=== PATIENT | female | born 1985 | race Caucasian/White ===

== ENCOUNTER 2016-07-30 14:26 | Emergency (ER) | payer OTHER ==
--- NOTE | ~2016-07-30 | CT71 ---
[facility] A Service [facility] RADIOLOGY TEXT RESULTS PATIENT: TENZIN SCHREIBER LOCATION: [facility] : 89 UNIT #: [id number] AGE: [address]: Linda Carbajal MD SEX: F ORDER DR: [id number] [facility]. [place], [place] [address] [id number] E MR#: [id number] Acc #: [id number] NAME: TENZIN SCHREIBER : 1985 SEX: F STUDY DATE/TIME: 07/30/2016 15:17 UNIT: [facility] ROOM: STUDY DESCRIPTION: CT Head Wo Contrast Attending Physician: Linda Carbajal M.D. Ordering Physician: Linda Carbajal M.D. Primary Care Physician: Tamara Davidson M.D. MEDICAL IMAGING REPORT This report is preliminary unless electronic signature is present EXAM CT head. HISTORY Migraine headaches for [address] of the head without contrast. This CT exam was performed with one or more of the following radiation dose reduction techniques: automatic exposure control, adjustment of mA and/or kV according to patient size, and iterative reconstruction. COMPARISON CT head, dated 08/17/2009. FINDINGS Ventricular size and configuration are normal. There is no evidence of acute infarct or hemorrhage. There are no extra-axial fluid collections. No mass lesion or mass effect is seen. There are no skull fractures. IMPRESSION Normal noncontrast head CT. Dictated by... Servando Cee M.D. THIS IS AN ELECTRONICALLY VERIFIED REPORT Servando Cee M.D. at 07/30/2016 7:47 PM CRISTINA/jennifer TD: 07/30/2016 16:56 [facility] A Service [facility] RADIOLOGY TEXT RESULTS PATIENT: TENZIN SCHREIBER LOCATION: [facility] : 89 UNIT #: [id number] AGE: [address]: Linda Carbajal MD SEX: F ORDER DR: SAKSHI #: [id number] MEDICAL IMAGING REPORT Page 1 of 1 COPY
[~2016-07-30 14:26] MED LIST: ACETAMINOPHEN PO; ALPRAZOLAM0.5 MG PO; ANUSOL SUPP1 SUPP PR; ATARAX PO; BACTRIM 400-801 TA1 PO; BENTYL20 M1 PO; CELEXA20 M1 PO; CETIRIZINE HCL10 MG PO; CIPRO PO; FLAGYL PO; FLUTICASONE PRO16 GM; KLONOPIN0.5 MG PO; LORTAB 10-5001 EACH PO; LORTAB 5-325 M1 EACH PO; MEDROL4 MG/DOSE- PO; MOTRIN600 MG PO; PERCOCET 51 UDTAB 5/ PO; PHENERGAN25 M1 PO; PROAIR HFA8.5 GM INH; PROTONIX; PROTONIX PO; REGLAN10 MG PO; TROKENDI XR25 MG PO; ZITHROMAX PO; ZOLOFT PO
[2016-07-30 14:48] LABS: URINE SOURCE CLEAN CATCH
[2016-07-30 14:53] LABS: URINE APPEARANCE CLEAR; URINE BILIRUBIN NEG (NEG); URINE BLOOD NEG (NEG); URINE COLOR YELLOW; URINE GLUCOSE NEG (NEG); URINE KETONE NEG (NEG); URINE LEUKOCYTE ESTERASE TRACE (NEG); URINE NITRATE NEG (NEG); URINE PH 7.5 (5-8); URINE PROTEIN NEG (NEG); URINE SPECIFIC GRAVITY 1.007 (1.003-1.035); URINE UROBILINOGEN 0.2 MG/DL (NEG)
[2016-07-30 14:54] LABS: BASOPHIL# 0.1 X10e3 (0-0.3); BASOPHIL% 1.1 % (0-2.5); EOSINOPHIL# 0.1 X10e3 (0-0.7); EOSINOPHIL% 1.7 % (0.0-7.0); HEMATOCRIT 40.2 % (35.0-45.0); HEMOGLOBIN 13.9 gm/dL (12.0-16.0); LYMPHOCYTE# 1.7 X10e3 (1.0-3.5); LYMPHOCYTE% 32.3 % (17.0-45.0); MEAN CELL VOLUME 91.2 FL (83-96); MEAN CORPUSCULAR HEMOGLOBIN 31.5 PG (28-34); MEAN CORPUSCULAR HGB CONC 34.5 g/dL (30-36); MEAN PLATELET VOLUME 9.7 FL (6.5-11.5); MONOCYTE# 0.3 X10e3 (0-1.0); MONOCYTE% 6.5 % (3.0-12.0); NEUTROPHIL% 58.4 % (40-75); PLATELET COUNT 167 X10e3 (140-420); RED BLOOD COUNT 4.41 X10e (3.90-5.30); RED CELL DISTRIBUTION WIDTH 12.6 % (11.0-15.5); WHITE BLOOD COUNT 5.2 X10e3 (4.0-10.5)
[2016-07-30 14:56] LABS: CULTURE INDICATED? YES; URBCS1 AUWI 0-2 /[HPF] (0-2); URINE BACTERIA AUWI 1+ (NEGATIVE); URINE SQUAMOUS EPITHELIAL CELL MOD /[HPF]
[2016-07-30 15:00] LABS: DIFF IND NO
[2016-07-30 15:55] LABS: BUN/CREATININE RATIO 11.42; CALCIUM SERUM 8.8 mg/dL (8.4-10.2); CREATININE SERUM 0.7 mg/dL (0.6-1.4); GLOM FILT RATE Estimated 117.9 mL/min (>60); POTASSIUM 3.3 mmol/L (3.5-5.1)
== END 2016-07-30 17:45 | disposition home or self-care (01) ==
LOC: CED 14:26
PROVIDERS: Emergency Medicine
DX: G43.909 Migraine, unspecified, not intractable, without status migrainosus (principal); Z91.041 Radiographic dye allergy status
CPT/HCPCS: 36415; 70450; 80048; 81003; 84703; 85025; 87086; 96361; 96374; 96375; 99284; J1200; J1885; J2405; J2930

== ENCOUNTER 2016-08-30 13:47 | Emergency (ER) | payer OTHER ==
[2016-08-30 14:17] LABS: URINE SOURCE CLEAN CATCH
[2016-08-30 14:26] LABS: URINE APPEARANCE CLEAR; URINE BILIRUBIN NEG (NEG); URINE BLOOD NEG (NEG); URINE COLOR YELLOW; URINE GLUCOSE NEG (NEG); URINE KETONE NEG (NEG); URINE LEUKOCYTE ESTERASE TRACE (NEG); URINE NITRATE NEG (NEG); URINE PROTEIN NEG (NEG); URINE SPECIFIC GRAVITY 1.007 (1.003-1.035); URINE UROBILINOGEN 0.2 MG/DL (NEG)
[2016-08-30 14:28] LABS: CULTURE INDICATED? YES; U HYALINE CASTS AUWI 0-2 /[LPF]; URBCS1 AUWI 0-2 /[HPF] (0-2); URINE BACTERIA AUWI 1+ (NEGATIVE); URINE SQUAMOUS EPITHELIAL CELL FEW /[HPF]
[2016-08-30 14:38] LABS: AMPHETAMINE NEG (NEG); BARBITURATES NEG (NEG); BENZODIAZEPINES NEG (NEG); COCAINE NEG (NEG); MARIJUANA NEG (NEG); OPIATES NEG (NEG); TRICYCLIC ANTIDEPRESSANTS NEG (NEG); U METHADONE NEG (NEG)
== END 2016-08-30 15:10 | disposition home or self-care (01) ==
LOC: CED 13:47
PROVIDERS: Student in an Organized Health Care Education/Training Program
DX: G43.909 Migraine, unspecified, not intractable, without status migrainosus (principal); Z91.041 Radiographic dye allergy status
CPT/HCPCS: 36415; 80307; 81003; 87086; 96361; 96374; 96375; 99284; J1200; J1885; J2405

== ENCOUNTER 2016-10-25 08:15 | Emergency (ER) | payer OTHER ==
--- NOTE | ~2016-10-25 | CR2 ---
[facility] A Service of [facility] RADIOLOGY TEXT RESULTS PATIENT: TENZIN SCHREIBER LOCATION: [facility] : 89 UNIT #: [id number] AGE: [address]: Heron Ahn MD SEX: F ORDER DR: [id number] [facility] [address] [place], [place] [address] [id number] E MR#: [id number] Acc #: [id number] NAME: TENZIN SCHREIBER. : 1985 SEX: F STUDY DATE/TIME: 10/25/2016 10:33 UNIT: [facility] ROOM: STUDY DESCRIPTION: CR Abdomen Acute Series Attending Physician: Heron Ahn M.D. Ordering Physician: Heron Ahn M.D. Primary Care Physician: Tamara Davidson M.D. MEDICAL IMAGING REPORT This report is preliminary unless electronic signature is present EXAM Acute abdomen series, 3 views, 10/25/2016. HISTORY Abdomen pain, vomiting and diarrhea for 1 day with nausea. FINDINGS Single frontal view of the chest taken at the time of the abdominal examination is within normal limits. AP, supine, and upright examination of the abdomen shows a normal gas and fecal pattern distribution throughout large and small bowel without distended loops in either area. There is no indication of extraluminal air, unusual visceromegaly, or soft tissue density mass. The renal definitions are fairly well demarcated and normal in shape and size. No abnormal intra-abdominal calcifications are present. IMPRESSION Normal acute abdomen series. Dictated by... Gary Mckenna M.D. THIS IS AN ELECTRONICALLY VERIFIED REPORT Gary Mckenna M.D. at 10/26/2016 2:15 PM KRT/yemi TD: 10/25/2016 18:04 JOB #: [id number] [facility] A Service of [facility] RADIOLOGY TEXT RESULTS PATIENT: TENZIN SCHREIBER LOCATION: [facility] : 89 UNIT #: [id number] AGE: [address]: Heron Ahn MD SEX: F ORDER DR: MEDICAL IMAGING REPORT Page 1 of 1 COPY
[2016-10-25 10:17] LABS: BASOPHIL% 1.1 % (0-2.5); EOSINOPHIL% 1.1 % (0.0-7.0); HEMATOCRIT 41.5 % (35.0-45.0); LYMPHOCYTE% 24.7 % (17.0-45.0); MEAN CELL VOLUME 93.4 FL (83-96); MEAN CORPUSCULAR HEMOGLOBIN 31.4 PG (28-34); MEAN CORPUSCULAR HGB CONC 33.7 g/dL (30-36); MEAN PLATELET VOLUME 10.5 FL (6.5-11.5); MONOCYTE# 0.3 X10e3 (0-1.0); MONOCYTE% 7.7 % (3.0-12.0); NEUTROPHIL# 2.7 X10e3 (1.5-7.1); NEUTROPHIL% 65.4 % (40-75); PLATELET COUNT 173 X10e3 (140-420); RED BLOOD COUNT 4.44 X10e (3.90-5.30); RED CELL DISTRIBUTION WIDTH 12.7 % (11.0-15.5); WHITE BLOOD COUNT 4.2 X10e3 (4.0-10.5)
[2016-10-25 10:20] LABS: DIFF IND NO
[2016-10-25 10:40] LABS: URINE SOURCE CLEAN CATCH
[2016-10-25 10:43] LABS: ALBUMIN SERUM 4.7 g/dL (3.5-5.0); BILIRUBIN, DIRECT 0.1 mg/dL (0.0-0.2); BILIRUBIN,INDIRECT 0.8 mg/dL (0.0-0.9); BILIRUBIN,TOTAL 0.9 mg/dL (0.2-2.0); BUN/CREATININE RATIO 13.33; CALCIUM SERUM 9.1 mg/dL (8.4-10.2); CREATININE SERUM 0.6 mg/dL (0.6-1.4); POTASSIUM 3.8 mmol/L (3.5-5.1); PROTEIN TOTAL SERUM 7.3 g/dL (6.0-8.3)
[2016-10-25 10:44] LABS: URINE APPEARANCE CLOUDY; URINE BILIRUBIN NEG (NEG); URINE BLOOD NEG (NEG); URINE COLOR YELLOW; URINE GLUCOSE NEG (NEG); URINE KETONE NEG (NEG); URINE LEUKOCYTE ESTERASE TRACE (NEG); URINE NITRATE NEG (NEG); URINE PROTEIN NEG (NEG); URINE SPECIFIC GRAVITY 1.019 (1.003-1.035)
[2016-10-25 10:47] LABS: CULTURE INDICATED? YES; URINE BACTERIA AUWI 2+ (NEGATIVE); URINE SQUAMOUS EPITHELIAL CELL MOD /[HPF]
== END 2016-10-25 13:02 | disposition home or self-care (01) ==
LOC: CED 08:15
PROVIDERS: Emergency Medicine
DX: R11.2 Nausea with vomiting, unspecified (principal); R19.7 Diarrhea, unspecified; Z91.041 Radiographic dye allergy status
CPT/HCPCS: 36415; 74022; 80048; 80076; 81003; 83690; 84703; 85025; 87086; 96361; 96374; 99284; J2405

== ENCOUNTER 2016-11-21 11:30 | Emergency (ER) | payer OTHER ==
--- NOTE | ~2016-11-21 | EKG ---
PATIENT: TENZIN SCHREIBER UNIT #: [id number] Ventricular Rate: 63 BPM Atrial Rate: 63 BPM P-R Interval: 138 ms QRS Duration: 94 ms Q-T Interval: 426 ms QTC Calculation(Bezet): 435 ms P [place]: 65 degrees Calculated R [place]: 67 degrees Calculated T [place]: 64 degrees Diagnosis Line: Normal sinus rhythm Diagnosis Line: Normal ECG Diagnosis Line: When compared with ECG of 12-JUN-2015 16:24, Diagnosis Line: T wave inversion no longer evident in Inferior Diagnosis Line: leads Diagnosis Line: Nonspecific T wave abnormality no longer evident Diagnosis Line: in Anterolateral leads Diagnosis Line: Confirmed by ANSON JAVIER MD ([id number]) on Diagnosis Line: 11/21/2016 3:57:51 PM INTERPRETING MD: LUIS ALBERTO
[2016-11-21 12:25] LABS: URINE SOURCE CLEAN CATCH
[2016-11-21 12:32] LABS: BASOPHIL% 0.8 % (0-2.5); EOSINOPHIL# 0.1 X10e3 (0-0.7); EOSINOPHIL% 2.8 % (0.0-7.0); HEMATOCRIT 41.7 % (35.0-45.0); HEMOGLOBIN 14.6 gm/dL (12.0-16.0); LYMPHOCYTE# 1.5 X10e3 (1.0-3.5); LYMPHOCYTE% 29.7 % (17.0-45.0); MEAN CELL VOLUME 93.6 FL (83-96); MEAN CORPUSCULAR HEMOGLOBIN 32.8 PG (28-34); MEAN PLATELET VOLUME 9.8 FL (6.5-11.5); MONOCYTE# 0.4 X10e3 (0-1.0); MONOCYTE% 8.6 % (3.0-12.0); NEUTROPHIL% 58.1 % (40-75); PLATELET COUNT 165 X10e3 (140-420); RED BLOOD COUNT 4.45 X10e (3.90-5.30); RED CELL DISTRIBUTION WIDTH 12.8 % (11.0-15.5); WHITE BLOOD COUNT 5.2 X10e3 (4.0-10.5)
[2016-11-21 12:35] LABS: DIFF IND NO
[2016-11-21 12:38] LABS: URINE APPEARANCE CLEAR; URINE BILIRUBIN NEG (NEG); URINE BLOOD NEG (NEG); URINE COLOR YELLOW; URINE GLUCOSE NEG (NEG); URINE KETONE NEG (NEG); URINE LEUKOCYTE ESTERASE TRACE (NEG); URINE NITRATE NEG (NEG); URINE PROTEIN NEG (NEG); URINE SPECIFIC GRAVITY 1.008 (1.003-1.035); URINE UROBILINOGEN 0.2 MG/DL (NEG)
[2016-11-21 12:41] LABS: CULTURE INDICATED? YES; URBCS1 AUWI 0-2 /[HPF] (0-2); URINE BACTERIA AUWI 1+ (NEGATIVE); URINE SQUAMOUS EPITHELIAL CELL MOD /[HPF]
[2016-11-21 13:04] LABS: BUN/CREATININE RATIO 14.28; CALCIUM SERUM 9.1 mg/dL (8.4-10.2); CREATININE SERUM 0.7 mg/dL (0.6-1.4); GLOM FILT RATE Estimated 117.1 mL/min (>60); POTASSIUM 3.5 mmol/L (3.5-5.1)
== END 2016-11-21 13:45 | disposition home or self-care (01) ==
LOC: CED 11:30
PROVIDERS: Emergency Medicine
DX: R42 Dizziness and giddiness (principal); R51 Headache; F41.9 Anxiety disorder, unspecified; F32.9 Major depressive disorder, single episode, unspecified; K58.9 Irritable bowel syndrome, unspecified; Z98.890 Other specified postprocedural states; Z91.041 Radiographic dye allergy status
CPT/HCPCS: 36415; 80048; 81003; 84703; 85025; 87086; 93005; 99284

== ENCOUNTER 2017-01-08 11:19 | Emergency (ER) | payer OTHER ==
[~2017-01-08] VITALS: Ht 165.1 cm; Wt 65.8 kg
--- NOTE | ~2017-01-08 | EKG ---
PATIENT: TENZIN SCHREIBER UNIT #: [id number] Ventricular Rate: 69 BPM Atrial Rate: 69 BPM P-R Interval: 144 ms QRS Duration: 86 ms Q-T Interval: 394 ms QTC Calculation(Bezet): 422 ms P [place]: 38 degrees Calculated R [place]: 20 degrees Calculated T [place]: 17 degrees Diagnosis Line: Normal sinus rhythm Diagnosis Line: Normal ECG Diagnosis Line: When compared with ECG of 21-NOV-2016 12:05, Diagnosis Line: No significant change was found Diagnosis Line: Confirmed by FRANCISCA HUNTLEY MD ([id number]) on Diagnosis Line: 01/10/2017 11:31:12 AM INTERPRETING MD: YUKO PARKER
--- NOTE | ~2017-01-08 | CR72 ---
[facility] A Service [facility] RADIOLOGY TEXT RESULTS PATIENT: TENZIN SCHREIBER LOCATION: [facility] : 89 UNIT #: [id number] AGE: [address]: Bryan Wild MD SEX: F ORDER DR: [id number] [id number] [facility]. [place], [place] [address] [id number] E MR#: [id number] Acc #: [id number] NAME: TENZIN SCHREIBER : 1985 SEX: F STUDY DATE/TIME: 01/08/2017 12:19 UNIT: [facility] ROOM: STUDY DESCRIPTION: CR Chest Single View Portable Attending Physician: Bryan Wild M.D. Ordering Physician: Bryan Wild M.D. Primary Care Physician: Tamara Davidson M.D. MEDICAL IMAGING REPORT This report is preliminary unless electronic signature is present EXAM Portable chest x-ray 01/08/2017 HISTORY Syncope. Hands cold. Symptoms 1 week. TECHNIQUE AP radiograph of the chest is presented. COMPARISON STUDIES 10/25/2016. FINDINGS The bony structures show evidence of levoscoliosis lumbar spine, similar appearance on prior study. Heart and mediastinum normal in size and contour. The lungs are hyperinflated, as on the prior study. Correlate with any known underlying chronic airway disease. There is no pleural effusion or pneumothorax. No suspicious nodule. No evidence of acute infectious or inflammatory disease. Dictated by... Con Gonzalez M.D. THIS IS AN ELECTRONICALLY VERIFIED REPORT Con Gonzalez M.D. at 01/10/2017 2:31 PM MYRANDA/sen TD: 01/08/2017 19:38 JOB #: [id number] [facility] A Service of [facility] RADIOLOGY TEXT RESULTS PATIENT: TENZIN SCHREIBER LOCATION: [facility] : 89 UNIT #: [id number] AGE: [address]: Bryan Wild MD SEX: F ORDER DR: MEDICAL IMAGING REPORT Page 1 of 1 COPY
--- NOTE | ~2017-01-08 | CT71 ---
[facility] A Service of [facility] RADIOLOGY TEXT RESULTS PATIENT: TENZIN SCHREIBER LOCATION: [facility] : 89 UNIT #: [id number] AGE: [address]: Bryan Wild MD SEX: F ORDER DR: [id number] [facility] [address] [place], [place] [address] [id number] E MR#: [id number] Acc #: [id number] NAME: TENZIN SCHREIBER : 1985 SEX: F STUDY DATE/TIME: 01/08/2017 12:34 UNIT: [facility] ROOM: STUDY DESCRIPTION: CT Head Wo Contrast Attending Physician: Bryan Wild M.D. Ordering Physician: [id number] Kofi Wild Primary Care Physician: Tamara Davidson M.D. MEDICAL IMAGING REPORT This report is preliminary unless electronic signature is present EXAM CT head without contrast INDICATIONS Syncope in the shower this morning. Patient hit her head. she reports headache and dizziness and nausea. TECHNIQUE Axial noncontrast images were obtained from the skull base to the vertex. This CT exam was performed with one or more of the following radiation dose reduction techniques: automatic exposure control, adjustment of mA and/or kV according to patient size, and iterative reconstruction. FINDINGS Ventricular size and configuration are normal. There is no evidence of acute infarct or hemorrhage. There are no extraaxial fluid collections. No mass lesion or mass effect is seen. There are no skull fractures. IMPRESSION Negative. Normal noncontrast head CT. Dictated by... Arianna Mcdonald M.D. THIS IS AN ELECTRONICALLY VERIFIED REPORT Arianna Mcdonald M.D. at 01/09/2017 5:41 PM AFF/to TD: 01/08/2017 20:57 JOB #: [id number] MEDICAL IMAGING REPORT Page 1 of 1 COPY
[2017-01-08 12:22] LABS: BASOPHIL# 0.1 X10e3 (0-0.3); BASOPHIL% 1.2 % (0-2.5); EOSINOPHIL# 0.1 X10e3 (0-0.7); EOSINOPHIL% 2.4 % (0.0-7.0); HEMATOCRIT 42.5 % (35.0-45.0); HEMOGLOBIN 14.5 gm/dL (12.0-16.0); LYMPHOCYTE# 1.5 X10e3 (1.0-3.5); LYMPHOCYTE% 28.7 % (17.0-45.0); MEAN CELL VOLUME 92.8 FL (83-96); MEAN CORPUSCULAR HEMOGLOBIN 31.7 PG (28-34); MEAN CORPUSCULAR HGB CONC 34.1 g/dL (30-36); MEAN PLATELET VOLUME 9.7 FL (6.5-11.5); MONOCYTE# 0.4 X10e3 (0-1.0); MONOCYTE% 7.7 % (3.0-12.0); NEUTROPHIL# 3.1 X10e3 (1.5-7.1); PLATELET COUNT 205 X10e3 (140-420); RED BLOOD COUNT 4.58 X10e (3.90-5.30); RED CELL DISTRIBUTION WIDTH 12.8 % (11.0-15.5); WHITE BLOOD COUNT 5.2 X10e3 (4.0-10.5)
[2017-01-08 12:23] LABS: DIFF IND NO
[2017-01-08 12:33] LABS: PROTHROMBIN TIME (PATIENT) 10.4 SECONDS (10.0-11.7)
[2017-01-08 12:34] LABS: INFLUENZA A NEG (NEG)
[2017-01-08 12:35] LABS: INFLUENZA B NEG (NEG)
[2017-01-08 13:12] LABS: ALBUMIN SERUM 4.7 g/dL (3.5-5.0); ALKALINE PHOSPHATASE 48 U/L (32-92); ALT (SGPT) 51 U/L (10-40); AST (SGOT) 20 U/L (10-42); BILIRUBIN, DIRECT <0.1 mg/dL (0.0-0.2); BILIRUBIN,INDIRECT 0.6 mg/dL (0.0-0.9); BILIRUBIN,TOTAL 0.7 mg/dL (0.2-2.0); BLOOD UREA NITROGEN 14 mg/dL (9-23); CALCIUM SERUM 9.2 mg/dL (8.4-10.2); CARBON DIOXIDE 27 mmol/L (22-31); CHLORIDE 103 mmol/L (100-111); CREATININE SERUM 0.7 mg/dL (0.6-1.4); GLOM FILT RATE Estimated 117.1 mL/min (>60); GLUCOSE FASTING 65 mg/dL (70-110); POTASSIUM 3.6 mmol/L (3.5-5.1); PROTEIN TOTAL SERUM 7.3 g/dL (6.0-8.3); SODIUM 137 mmol/L (135-145)
== END 2017-01-08 13:49 | disposition home or self-care (01) ==
LOC: CED 11:19
PROVIDERS: Emergency Medicine
DX: R55 Syncope and collapse (principal); R73.9 Hyperglycemia, unspecified; Z91.041 Radiographic dye allergy status
CPT/HCPCS: 36415; 70450; 71010; 80048; 80076; 82947; 84703; 85025; 85610; 87804; 93005; 96361; 96374; 99285